=== PATIENT | female | born 1955 | race Caucasian/White ===

== ENCOUNTER 2017-03-29 03:38 | Observation (INO) | payer OTHER ==
[~2017-03-29] VITALS: Ht 157.5 cm; Wt 78.0 kg
--- NOTE | ~2017-03-29 | O ---
[facility] [place] [address] OPERATIVE REPORT Name: SHAUN NAVARRETE [id number] Admission: 03/29/17 Attend Phys: Deepak Mitchell MD, F Discharge: 03/29/17 Date of : 51 Report #: [id number] THIS REPORT FOR: //name// CC: Abi Mitchell DATE OF SERVICE: 03/29/2017 SURGEON: Deepak Mitchell MD. ORDER PROCESSING CLERK: Siobhan Beltrán NP. PREOPERATIVE DIAGNOSIS: Acute appendicitis. POSTOPERATIVE DIAGNOSIS: Acute nonsuppurative, nonperforated appendicitis. PROCEDURE: Laparoscopic appendectomy. ANESTHESIA: General endotracheal anesthesia and local anesthetic. ESTIMATED BLOOD LOSS: 5 mL. SPECIMEN: Appendix. COMPLICATIONS: None appreciated. INDICATIONS FOR PROCEDURE: This is a 61-year-old female patient who was seen in the [place] [facility] with periumbilical pain localizing to her right lower quadrant starting the day prior to her admission. She denied fever or chills, but had some difficulty with flatulence. CT of the abdomen and pelvis showed changes consistent with acute appendicitis. Her appendix was inflamed with an appendicolith near its origin with periappendiceal fat stranding. The patient had an exam consistent with acute appendicitis. She presents now for laparoscopic appendectomy. OPERATIVE FINDINGS: Upon entrance into the abdominal cavity, the appendix was inflamed involving almost the entire appendix. The base of the appendix was mildly inflamed. There was no evidence for perforation or abscess. Upon running her small bowel, there was no evidence for a Meckel's diverticulum. No other significant intra-abdominal pathology was seen. After stapling off and removing the appendix, the staple line was hemostatic and secure. At the conclusion of the operation, the sponge, needle, and instrument counts were correct. There was no evidence for iatrogenic injury. DESCRIPTION OF PROCEDURE IN DETAIL: After the risks, benefits, and expectations of the operation were discussed in detail with the patient, informed consent was [address] [address] OPERATIVE REPORT Name: SHAUN NAVARRETE [facility] Room #: 426-P [facility] Angela#: [id number] Admission: 03/29/17 Attend Phys: Deepak Mitchell MD, F Discharge: 03/29/17 Date of : 51 Report #: [id number]. The patient was identified in the preoperative holding area. She has been receiving scheduled IV antibiotics. The patient was taken to the operating room and she was placed in the supine position. SCDs were placed on the patient's bilateral lower extremities and pneumatic compression was initiated. The patient was then given IV sedation and she was intubated without incident. Her abdomen was prepped and draped in the standard sterile fashion. A time-out was performed to identify the correct patient and procedure. Local anesthetic was infiltrated into the skin and subcutaneous tissue infraumbilically where a curvilinear incision was made with #15 blade scalpel. Dissection was carried down to the fascia. A small fascial incision was made and the 12 mm Visiport was placed intraperitoneally with a 0-degree angled laparoscope. Pneumoperitoneum was then achieved with insufflation of carbon dioxide to 15 mmHg. A 30-degree angled laparoscope was then inserted. A suprapubic 5 mm and left lower quadrant 5 mm port were each placed under direct visualization after local anesthetic was infiltrated into the skin and subcutaneous tissue and appropriately sized incisions were made. The patient was placed in the Trendelenburg position, rotated to her left. Operative findings are as noted above. The appendix was identified in the right lower quadrant of the abdomen. A small amount of serous peritoneal fluid was seen with no turbidity. A window was made in the mesoappendix adjacent to the base of the appendix. A blue load endoscopic SUSI stapler was then used to staple and divide the appendix at its base. The mesoappendix was divided with the ultrasonic dissector with good hemostasis. The appendix and mesoappendix were then placed in an Endopouch and removed through the infraumbilical port site. A [id number]-[id number] 0 PDS suture was then placed to close the 12 mm port site fascial opening. This suture was tagged and the port was replaced. The abdominal cavity was then reentered. The staple line was hemostatic and secure. No other significant intra-abdominal pathology was seen. The 12 mm port was removed and the suture was tied under direct visualization to ensure no incorporation of intra-abdominal content. The abdominal cavity was then desufflated. The ports were removed. Interrupted subcuticular 4-0 Monocryl sutures and Dermabond were used to close the skin incisions. The patient tolerated the procedure well. She was awakened, extubated, and taken to the recovery room in stable condition with no apparent intraoperative complications. <ELECTRONICALLY SIGNED> By: Deepak Mitchell MD, FACS 04/06/17 1007 [id number] 1829 Deepak Mitchell MD, FACS /nt
--- NOTE | ~2017-03-29 | S ---
[facility] [place] [address] SURGICAL PATH RPT PROCEDURE Name: SABRINA EY Room #: 426-P STIVEN Miller#: [id number] Admission: 03/29/17 Date of : 51 Discharge: 03/29/17 Report #: [id number] Path Case #: [id number] PATHOLOGY REPORT COLLECTION DATE: 03/29/2017 RECEIVED DATE: 03/29/2017 SUBMITTING PHYS: Dr. Deepak Mitchell OTHER PHYS: Dr. Abi Dos Santos SPECIMEN(S) RECEIVED: A.Appendix * * * * * * * * * * * * FINAL DIAGNOSIS: Appendix, appendectomy: - Acute appendicitis and periappendicitis. (SKM:[facility]; 03/30/2017) PATHOLOGIST: Fabiano Multani M.D. REPORT ELECTRONICALLY SIGNED BY: Fabiano Multani M.D. DATE/TIME: 03/30/2017 14:26 * * * * * * * * * * * * GROSS PATHOLOGY: Received in formalin labeled "Sabrina Ye, appendix," is an appendix measuring 7.0 cm in length and 0.8 cm in diameter with a moderate amount of attached mesoappendix. The serosal surface is pink-welch, smooth, and partially encased with adhesions. Sectioning reveals a dilated lumen containing brown-red material. Residential Program Director sections are submitted in cassette A1. (SDY; 03/29/2017) CLINICAL HISTORY: Acute appendicitis INITIAL CPT CODE(S): A; 26433 Professional services performed by [facility] at [facility] [address], [place] [address] Technical services performed by [facility] at [address] [place] [address]. [facility] [address] [place] [address] SURGICAL PATH RPT PROCEDURE Name: SABRINA YE Room #: 426-P STIVEN Miller#: [id number] Admission: 03/29/17 Date of : 51 Discharge: 03/29/17 Report #: [id number] Path Case #: [id number] [address] PHONE: [phone] DIRECTOR: Declan Roca M.D. * * * END OF REPORT * * *
--- NOTE | ~2017-03-29 | H ---
[facility] [place] [address] HISTORY AND PHYSICAL Name: SHAUN NAVARRETE Room #: 426-P STIVEN Miller#: [id number] Admission: 03/29/17 Attend Phys: Deepak Mitchell MD, F Discharge: 03/29/17 Date of : 51 Report #: [id number] THIS REPORT FOR: //name// CC: Abi Mitchell DATE OF SERVICE: 03/29/2017 CHIEF COMPLAINT: Right lower quadrant abdominal pain. HISTORY OF PRESENT ILLNESS: This is a 61-year-old female patient with history of anxiety and arthritis who was seen in the [place] [facility] with periumbilical abdominal pain localizing to her right lower quadrant. Her pain started yesterday. She denies fever or chills and reports normal bowel function, although she has had some difficulty with flatulence. Seen in the Emergency Room, she underwent a CT of the abdomen and pelvis showing changes consistent with acute appendicitis. Her appendix was inflamed with an appendicolith near its origin and adjacent fat stranding. I have been asked to see the patient for further treatment. PAST MEDICAL HISTORY: Significant for arthritis and anxiety. PAST SURGICAL HISTORY: Left total knee arthroplasty on 09/14/2016. MEDICATIONS: No routine medications at home. ALLERGIES: No known drug allergies. FAMILY HISTORY: Reviewed and noncontributory to this hospitalization. SOCIAL HISTORY: The patient smokes 3/4 of a pack of cigarettes daily. She works in an office. She is accompanied by a sister and a friend. REVIEW OF SYSTEMS: As per history of present illness. GENERAL: The patient denies unintentional weight loss. Denies fever or chills. HEENT: Denies changes in taste, vision, hearing, or smell. RESPIRATORY: Denies shortness of breath, COPD or asthma. CARDIOVASCULAR: Denies chest pain or palpitations. GASTROINTESTINAL: As per history of present illness. Denies bright red blood per rectum. GENITOURINARY: Denies dysuria, urgency, increased urinary frequency or hematuria. MUSCULOSKELETAL: Denies myalgia, arthralgia or arthritis. NEUROLOGIC: Denies headaches, numbness or tingling. PSYCHIATRIC: Denies depression or suicidal ideations. Has a history of anxiety. [facility] [address] [place] [address] HISTORY AND PHYSICAL Name: SHAUN NAVARRETE Room #: 426-P [facility] Angela#: [id number] Admission: 03/29/17 Attend Phys: Deepak Mitchell MD, F Discharge: 03/29/17 Date of : 51 Report #: [id number] ENDOCRINE: Denies polydipsia, polyuria, heat or cold intolerance. HEMATOLOGIC: Denies easy bleeding, bruising or anemia. All other review of systems is negative. PHYSICAL EXAMINATION: VITAL SIGNS: Temperature 98.5, blood pressure 133/73, pulse 93, respirations 18. GENERAL: This is a well-developed, well-nourished, friendly, cooperative 61-year-old female patient in no acute distress. HEENT: Atraumatic, normocephalic with moist mucosal membranes. Oropharynx is clear. She has no scleral icterus. NECK: Supple, no appreciable lymphadenopathy. Trachea is midline. CHEST: Clear bilaterally. CARDIOVASCULAR: Regular rate and rhythm. ABDOMEN: Soft and tender to palpation in the right lower quadrant over McBurney's point. She has no rebound or guarding. No incisional scars are seen. No appreciable hernias, no palpable masses. GENITOURINARY: Normal external female genitalia. EXTREMITIES: No clubbing, cyanosis or edema. NEUROLOGIC: Cranial nerves 2-12 grossly intact. PSYCHIATRIC: Normal mood and affect. SKIN AND INTEGUMENTARY: No acute inflammatory changes, rashes or lesions are present. LABORATORY DATA: CBC shows a white blood cell count of 13.7, hemoglobin 14.1, hematocrit 40.9, and platelets 258. Her electrolytes show sodium of 139, potassium 3.9, chloride 103, CO2 26, BUN 10, creatinine 0.9, glucose 110 with normal liver function tests and a normal lipase. Her lactate was normal at 1.8. Urinalysis showed 1+ blood and 1-9 bacteria. RADIOLOGIC STUDIES: CT of the abdomen and pelvis, findings are as noted above. The appendix did measure 9 mm. There is no evidence for abscess and a small amount of free pelvic fluid was seen. There was no intraperitoneal air identified. IMPRESSION AND PLAN: This is a 61-year-old female patient with a history of anxiety and arthritis, who has localized right lower quadrant abdominal pain and clinical evidence for acute appendicitis. We discussed the pathophysiology and natural history of acute appendicitis as well as treatment alternatives and surgical options. The patient would benefit from laparoscopic appendectomy. The risks, benefits, and expectations of the operation were discussed in detail. [address] [address] HISTORY AND PHYSICAL Name: SHAUN NAVARRETE Room #: 426-P STIV[facility] Miller#: [id number] Admission: 03/29/17 Attend Phys: Deepak Mitchell MD, F Discharge: 03/29/17 Date of : 51 Report #: [id number] The patient expressed understanding and wishes to proceed. She will be taken to the operating room at the next earliest availability. <ELECTRONICALLY SIGNED> By: Deepak Mitchell MD, FACS 04/06/17 1007 1557 1616 Deepak Mitchell MD, FACS /nt
[~2017-03-29 03:38] MED LIST: ANASPAZ0.125 MG SL; ANTIVERT25 MG PO; ASPIRIN EC81 M1 PO; CIPRO500 MG PO; COLACE100 MG PO; FLAGYL500 MG PO; LEVAQUIN 500 M500 M2 PO; MEDROLDOSEPACK; MIRALAX17 GM PO; MUCINEX TA600 MG/TA2 PO; PREDNISONE 10 M10 M1; ULTRAM 50MG TAB50 MG PO; VALACYCLOVIR1000 MG PO; XANAX 0.5 MG0.5 MG PO; ZOCOR 20 MG TAB20 M1 PO; ZOLOFT 50 MG TA50 M1 PO; ZPAK PO
[2017-03-29 03:46] VITALS: BP 135/85
[2017-03-29 04:07] LABS: ABSOLUTE NEUTROPHILS 8.8 thou/uL (1.4-8.2); EOSINOPHILS 1.7 % (0.0-3.0); HEMATOCRIT 40.9 % (37.0-47.0); HEMOGLOBIN 14.1 gm/dL (12.0-15.0); MCH 31.2 pg (26.0-34.0); MCHC 34.5 g/dL (28.0-37.0); MCV 90.6 fL (80.0-100.0); MONOCYTES 4.3 % (1.0-8.0); PLATELET COUNT 258 thou/uL (150-400); RBC 4.51 mil/uL (4.20-5.00); RDW 13.2 % (10.5-14.5); WBC 13.7 thou/uL (4.0-11.0)
[2017-03-29 04:11] LABS: ANION GAP 10 mmol/L (7-16); BUN 10 mg/dL (7-18); CALCIUM 9.6 mg/dL (8.5-10.1); CHLORIDE 103 mmol/L (98-107); CO2 26 mmol/L (21-32); CREATININE 0.9 mg/dL (0.6-1.0); GLUCOSE 110 mg/dL (74-106); POTASSIUM 3.9 mmol/L (3.5-5.1); SODIUM 139 mmol/L (136-145)
[2017-03-29 04:17] LABS: ALBUMIN 3.7 g/dL (3.4-5.0); DIRECT BILIRUBIN < 0.1 mg/dL (<0.1-0.3); LIPASE 257 U/L (73-393); SGOT 16 U/L (15-37); SGPT 37 U/L (30-65); TOTAL BILIRUBIN 0.4 mg/dL (<0.1-1.0)
[2017-03-29 04:36] LABS: URINE BILIRUBIN NEGATIVE (Negative); URINE BLOOD 1+ (Negative); URINE CLARITY CLEAR; URINE COLOR YELLOW; URINE GLUCOSE-RANDOM* NEGATIVE (Negative); URINE KETONES NEGATIVE (Negative); URINE LEUKOCYTES NEGATIVE (Negative); URINE NITRITE NEGATIVE (Negative); URINE PROTEIN (DIPSTICK) NEGATIVE (Negative); URINE UROBILINOGEN 0.2 E.U./dl (0.2-1.0)
[2017-03-29 04:57] LABS: BACTERIA 1-9 Few /HPF (None Seen); CASTS None Seen /LPF (None Seen); CRYSTALS None Seen /LPF (None Seen); MUCUS 0-3 Light strn/LPF (None Seen); SQUAMOUS 0-3 Few /LPF (0-3); URINE RBC 3-10 Few /HPF (0-2); URINE WBC 0-5 Rare /HPF (0-5)
[2017-03-29 05:10] VITALS: BP 135/85
[2017-03-29 05:17] VITALS: BP 136/88
[2017-03-29 07:15] VITALS: BP 140/79
[2017-03-29 08:10] VITALS: BP 133/73
[2017-03-29] MEDS ORDERED: HYDROCODONE-AP1 EAC6 PO (10:58)
[2017-03-29] MEDS ORDERED: AUGMENTIN 875-1 EACH PO (10:58)
[2017-03-29] MEDS ORDERED: SENNA-S TABLET1 EACH PO (10:58)
[2017-03-29 15:46] VITALS: BP 133/73
[2018-01-23] MEDS ORDERED: DICLOFENAC SODI25 MG PO (06:34)
[2018-01-23] MEDS ORDERED: PREDNISONE 10 M10 MG PO (06:59)
== END 2017-03-29 17:40 | disposition home or self-care (01) ==
LOC: ER 03:38 → EROBS 05:04 → ER 05:04 → EROBS 05:21 → 4E 05:21
PROVIDERS: Emergency Medicine
DX: K35.80 Unspecified acute appendicitis (principal); F41.9 Anxiety disorder, unspecified; F17.210 Nicotine dependence, cigarettes, uncomplicated
CPT/HCPCS: 50010; 50101; 50249; 50411; 50555; 50558; 50739; 50740; 50962; 51975; 52265; 53307; 54022; 54118; 56526; 56527; 62110; 62900; 70005

== ENCOUNTER 2018-02-28 19:05 | Emergency (ER) | payer OTHER ==
[~2018-02-28] VITALS: Ht 160 cm; Wt 77.1 kg
[~2018-02-28 19:05] MED LIST changes: +AUGMENTIN 875-1 EACH PO; +DICLOFENAC SODI25 MG PO; +HYDROCODONE-AP1 EAC6 PO; +PREDNISONE 10 M10 MG PO; +SENNA-S TABLET1 EACH PO
[2018-02-28 21:20] LABS: URINE BILIRUBIN NEGATIVE (Negative); URINE BLOOD NEGATIVE (Negative); URINE CLARITY CLEAR; URINE COLOR YELLOW; URINE GLUCOSE-RANDOM* NEGATIVE (Negative); URINE KETONES NEGATIVE (Negative); URINE LEUKOCYTES NEGATIVE (Negative); URINE NITRITE NEGATIVE (Negative); URINE PROTEIN (DIPSTICK) NEGATIVE (Negative); URINE UROBILINOGEN 0.2 E.U./dl (0.2-1.0)
[2018-02-28 21:28] LABS: ABSOLUTE NEUTROPHILS 4.4 thou/uL (1.4-8.2); BASOPHILS 1.2 % (0.0-2.0); EOSINOPHILS 2.3 % (0.0-3.0); HEMATOCRIT 28.4 % (37.0-47.0); HEMOGLOBIN 9.8 gm/dL (12.0-15.0); LYMPHOCYTES 40.8 % (24.0-44.0); MCH 32.1 pg (26.0-34.0); MCHC 34.6 g/dL (28.0-37.0); MCV 92.7 fL (80.0-100.0); MONOCYTES 6.2 % (1.0-8.0); PLATELET COUNT 526 thou/uL (150-400); POLYS 49.5 % (36.0-66.0); RBC 3.06 mil/uL (4.20-5.00); RDW 13.1 % (10.5-14.5); WBC 8.9 thou/uL (4.0-11.0)
[2018-02-28 21:36] LABS: CALCIUM 9.3 mg/dL (8.5-10.1); CREATININE 0.8 mg/dL (0.6-1.0)
[2018-02-28 21:42] LABS: ALBUMIN 2.8 g/dL (3.4-5.0); TOTAL BILIRUBIN 0.2 mg/dL (<0.1-1.0); TOTAL PROTEIN 7.1 g/dL (6.4-8.2)
[2018-02-28] MEDS ORDERED: MEDROLDOSEPACK PO (22:39)
[2018-02-28 23:12] VITALS: BP 128/95
== END 2018-02-28 23:14 | disposition home or self-care (01) ==
LOC: ER 19:05
PROVIDERS: Physician Assistant
DX: G89.18 Other acute postprocedural pain (principal); M25.551 Pain in right hip; D64.9 Anemia, unspecified; F41.9 Anxiety disorder, unspecified; Z96.652 Presence of left artificial knee joint; F17.210 Nicotine dependence, cigarettes, uncomplicated

== ENCOUNTER 2020-05-15 07:09 | Emergency (ER) | payer OTHER ==
[~2020-05-15] VITALS: Ht 160 cm; Wt 86.2 kg
[~2020-05-15 07:09] MED LIST changes: +MEDROLDOSEPACK PO
[2020-05-15] MEDS ORDERED: SERTRALINE HCL50 MG PO (07:12)
[2020-05-15] MEDS ORDERED: DICLOFENAC SOD50 M1 PO (07:12)
[2020-05-15 07:35] LABS: URINE BILIRUBIN NEGATIVE (Negative); URINE BLOOD NEGATIVE (Negative); URINE CLARITY CLEAR; URINE COLOR YELLOW; URINE GLUCOSE-RANDOM* NEGATIVE (Negative); URINE KETONES NEGATIVE (Negative); URINE LEUKOCYTES-REFLEX TRACE (Negative); URINE NITRITE-REFLEX NEGATIVE (Negative); URINE PROTEIN (DIPSTICK) NEGATIVE (Negative); URINE SPECIFIC GRAVITY 1.025 (1.005-1.035); URINE UROBILINOGEN 0.2 E.U./dl (0.2-1.0)
[2020-05-15 07:38] LABS: HEMATOCRIT 42.7 % (37.0-47.0); HEMOGLOBIN 14.2 gm/dL (12.0-15.0); MCH 31.2 pg (26.0-34.0); MCHC 33.2 g/dL (28.0-37.0); PLATELET COUNT 337 thou/uL (150-400); RBC 4.54 mil/uL (4.20-5.00); RDW 13.7 % (10.5-14.5); WBC 8.9 thou/uL (4.0-11.0)
--- NOTE | 2020-05-15 07:52 | EKG ---
[address] [address] ELECTROCARDIOGRAM REPORT Name: LANDONSHAUN SIMMONS Room #: [facility]..#: [id number] Admission: Attend Phys: Discharge: Date of : 51 Report #: [id number] [facility] ED Test Date: 2020-05-15 Test Time: 07:46:11 Pat Name: SHAUN NAVARRETE Department: Room: Gender: F Information Systems Supervisor: ahmet : 1955 Requested By: Doroteo Lazo Order Number: [id number] MD: Geovanny Segundo Measurements Intervals [place] Rate: 86 P: 38 [place]: 155 QRS: 1 QRSD: 88 T: 40 QT: 352 QTc: 421 Interpretive Statements Sinus rhythm Probable left atrial enlargement Compared to ECG 09/28/2014 10:12:19 ST (T wave) deviation no longer present Electronically Signed On 05-15-2020 7:52:23 [employer] REPAIRER by Geovanny Segundo [email or web address] <ELECTRONICALLY SIGNED> By: Geovanny Segundo MD, [facility] 05/15/20 0752 [id number] 0746 Geovanny Segundo MD, FACC /EPI
[2020-05-15 08:39] LABS: CALCIUM 9.2 mg/dL (8.5-10.1); POTASSIUM 3.7 mmol/L (3.5-5.1)
[2020-05-15 08:44] LABS: TOTAL BILIRUBIN 0.3 mg/dL (0.2-1.0); TOTAL PROTEIN 7.5 g/dL (6.4-8.2)
[2020-05-15 08:54] LABS: ABSOLUTE NEUTROPHILS 2.3 thou/uL (1.4-8.2); ATYPICAL LYMPHS 5 %
[2020-05-15 09:58] VITALS: BP 110/69
== END 2020-05-15 09:59 | disposition home or self-care (01) ==
LOC: ER 07:09
PROVIDERS: Emergency Medicine
DX: R10.11 Right upper quadrant pain (principal); R11.0 Nausea; R19.7 Diarrhea, unspecified; E78.5 Hyperlipidemia, unspecified; R35.0 Frequency of micturition; F41.9 Anxiety disorder, unspecified; F17.210 Nicotine dependence, cigarettes, uncomplicated; F17.200 Nicotine dependence, unspecified, uncomplicated; Z96.652 Presence of left artificial knee joint; Z98.890 Other specified postprocedural states; Z79.899 Other long term (current) drug therapy